=== PATIENT | female | born 1985 | race Hispanic/Latino ===

== ENCOUNTER 2020-12-28 17:19 | Emergency (ER) | payer OTHER | END 2020-12-28 18:04 | disposition home or self-care (01) | LOC: EDH 17:19 | DX: S46.211A Strain of muscle, fascia and tendon of other parts of biceps, right arm, initial encounter (principal); Z90.49 Acquired absence of other specified parts of digestive tract; Z98.890 Other specified postprocedural states; X50.0XXA Overexertion from strenuous movement or load, initial encounter; Y93.89 Activity, other specified; Y92.89 Other specified places as the place of occurrence of the external cause; Y99.8 Other external cause status ==